=== PATIENT | female | born 1965 | race Caucasian/White ===

== ENCOUNTER 2021-09-18 16:01 | Inpatient (IN) ==
[2021-09-18] MEDS ORDERED: Cefepime HCl 2,000 MG in 0.9 % Sodium Chloride 10 ML IVP ONE (18:40)
[2021-09-18] MEDS ORDERED: 0.9 % Sodium Chloride 1,000 ML IVC ONE (18:40)
[2021-09-18 18:57] LABS: Basophils % 0.2 %; Eosinophils # 0.1 K/mcL (0.0-0.6); Eosinophils % 0.5 %; Hematocrit 30.4 % (35.3-44.9); Hemoglobin 9.9 g/dL (11.5-15.4); Immature Granulocytes % 0.7 % (0-4); Lymphocytes % 6.7 %; Mean Corpuscular HGB Conc 32.6 g/dL (31.6-35.5); Mean Corpuscular Hemoglobin 30.3 pg (28.0-33.3); Mean Platelet Volume 11.2 fL (9.4-12.4); Monocytes # 0.9 K/mcL (0.0-1.3); Monocytes % 5.9 %; Neutrophils # 12.8 K/mcL (1.6-8.9); Platelet Count 229 K/mcL (140-400); Red Blood Count 3.27 M/mcL (3.82-4.97); Red Cell Distribution Width 12.3 % (11.5-14.5); White Blood Count 14.8 K/mcL (4.3-11.1)
[2021-09-18 19:10] LABS: INR 1.2
[2021-09-18 19:16] LABS: Alanine Aminotransferase 10 Units/L (7-52); Albumin 3.4 g/dL (3.5-5.7); Alkaline Phosphatase 104 Units/L (34-104); Aspartate Amino Transferase 9 Units/L (13-39); BUN/Creatinine Ratio 13 (6-26); Bilirubin,Direct 0.1 mg/dL (0.0-0.2); Bilirubin,Indirect 0.3 mg/dL (0.0-1.0); Bilirubin,Total 0.4 mg/dL (0.3-1.0); Blood Urea Nitrogen 14 mg/dL (6-20); C-Reactive Protein 220 mg/L (Less than 10); Calcium 8.8 mg/dL (8.6-10.3); Carbon Dioxide 22 mEq/L (23-29); Chloride 103 mEq/L (98-107); Globulin 3.3 g/dL (2.4-3.5); Glucose 126 mg/dL (70-105); Lipase 3 Units/L (11-82); Magnesium 1.3 mg/dL (1.6-2.6); Osmolality,Calculated 278 (280-300); Phosphorous 2.5 mg/dL (2.7-4.5); Potassium 4.2 mEq/L (3.5-5.1); Sodium 133 mEq/L (136-145); Total Protein 6.7 g/dL (6.4-8.9); Troponin I 0.03 ng/mL (< 0.04); eGFR For African Americans > 60 (> 60); eGFR For Non-African Americans 55 (> 60)
[2021-09-18] MEDS ORDERED: *HR* FentaNYL (PF) 100 MCG/2 ML VIAL IVP ONE (19:36)
[2021-09-18] MEDS ORDERED: Ibuprofen 800 MG TABLET PO ONE (20:42)
[2021-09-18] MEDS ORDERED: *HR* HYDROcodone/Acet 5/325 mg TABLET PO PRN (21:06)
[2021-09-18] MEDS ORDERED: Acetaminophen 325 MG TABLET PO PRN (21:06)
[2021-09-18] MEDS ORDERED: Melatonin 3 MG TABLET PO PRN (21:06)
[2021-09-18] MEDS ORDERED: Ondansetron 4 MG/2 ML VIAL IVP PRN (21:06)
[2021-09-18] MEDS ORDERED: *HR* OxyCODONE Immed Rel 5 MG TABLET PO PRN (21:06)
[2021-09-18] MEDS ORDERED: Naloxone 0.4 MG/ML INJ IVP PRN (21:06)
[2021-09-18] MEDS ORDERED: *HR* Dextrose 50 % in Water (Syg) 50 ML SYRINGE IVP PRN (21:09)
[2021-09-18] MEDS ORDERED: Dextrose Gel 15 GM/37.5 ML TUBE PO PRN ×2 (21:09)
[2021-09-18] MEDS ORDERED: D5% in Water 1,000 ML IVC PRN (21:09)
[2021-09-18] MEDS ORDERED: 0.9 % Sodium Chloride 1,000 ML IVC SCH (21:15)
[2021-09-18 21:47] LABS: Amphetamine Screen,Urine Negative ng/mL (Cutoff=1000); Barbiturate Screen,Urine Negative ng/mL (Cutoff=200); Benzodiazepines Screen,Urine Negative ng/mL (Cutoff=200); Cannabinoid Screen,Urine Negative ng/mL (Cutoff = 50); Cocaine Screen,Urine Negative ng/mL (Cutoff= 300); Opiate Screen,Urine Negative ng/mL (Cutoff=300); Phencyclidine Screen,Urine Negative ng/mL (Cutoff=25)
[2021-09-18] MEDS: Budesonide/Formoterol 160/4.5 1 PUFF INH IH SCH (22:49)
[2021-09-18 23:42] LABS: Procalcitonin 0.12 ng/mL (0.00-0.15)
[2021-09-18] MEDS: MetroNIDAZOLE 500 MG/100 ML 500 MG/100 ML BAG IVPB SCH (23:47)
[2021-09-18] MEDS: Cefepime HCl 2,000 MG in 0.9 % Sodium Chloride 10 ML IVP SCH (23:48)
[2021-09-19 05:17] LABS: Basophils % 0.2 %; Eosinophils % 0.3 %; Hematocrit 28.4 % (35.3-44.9); Hemoglobin 9.1 g/dL (11.5-15.4); Immature Granulocytes % 0.9 % (0-4); Lymphocytes # 1.4 K/mcL (0.6-4.6); Lymphocytes % 10.2 %; Mean Corpuscular Hemoglobin 30.2 pg (28.0-33.3); Mean Corpuscular Volume 94.4 fL (83.0-100.0); Mean Platelet Volume 11.2 fL (9.4-12.4); Monocytes # 1.1 K/mcL (0.0-1.3); Monocytes % 7.6 %; Neutrophils # 11.1 K/mcL (1.6-8.9); Platelet Count 191 K/mcL (140-400); Red Blood Count 3.01 M/mcL (3.82-4.97); Red Cell Distribution Width 12.5 % (11.5-14.5); Segmented Neutrophils % 80.8 %; White Blood Count 13.8 K/mcL (4.3-11.1)
[2021-09-19 05:21] LABS: INR 1.1; Prothrombin Time 12.7 Seconds (9.4-12.1)
[2021-09-19 05:23] LABS: Activated Partial Thrombo Time 30.2 Seconds (26.0-36.0)
[2021-09-19 05:31] LABS: Alanine Aminotransferase 8 Units/L (7-52); Alkaline Phosphatase 88 Units/L (34-104); Aspartate Amino Transferase 7 Units/L (13-39); BUN/Creatinine Ratio 14 (6-26); Bilirubin,Total 0.4 mg/dL (0.3-1.0); Blood Urea Nitrogen 14 mg/dL (6-20); Calcium 8.5 mg/dL (8.6-10.3); Carbon Dioxide 19 mEq/L (23-29); Chloride 111 mEq/L (98-107); Globulin 2.9 g/dL (2.4-3.5); Glucose 163 mg/dL (70-105); Magnesium 2.1 mg/dL (1.6-2.6); Osmolality,Calculated 288 (280-300); Phosphorous 3.4 mg/dL (2.7-4.5); Potassium 4.1 mEq/L (3.5-5.1); Sodium 137 mEq/L (136-145); Total Protein 5.9 g/dL (6.4-8.9); eGFR For African Americans > 60 (> 60); eGFR For Non-African Americans 56 (> 60)
[2021-09-19 05:32] LABS: % Iron Saturation 4 % (15-50); Iron 10 mcg/dL (50-170); Transferrin 202 mg/dL (203-362)
[2021-09-19 05:51] LABS: Ferritin 81 ng/mL (10-120)
[2021-09-19 06:06] LABS: Folate > 22.3 ng/mL (3.0-16.0); Vitamin B12 462 pg/mL (250-1100)
[2021-09-19] MEDS ORDERED: Ipratropium/Albuterol Neb 3 ML ONE (07:53)
[2021-09-19] MEDS: Budesonide/Formoterol 160/4.5 1 PUFF INH IH SCH ×3 (07:56→20:12)
[2021-09-19] MEDS: Insulin LISPRO 300 UNITS/3 ML VIAL SUBQ SCH ×5 (08:55→19:54)
[2021-09-19] MEDS: Cefepime HCl 2,000 MG in 0.9 % Sodium Chloride 10 ML IVP SCH (08:59)
[2021-09-19] MEDS ORDERED: Gabapentin 400 MG CAPSULE PO SCH (09:00)
[2021-09-19] MEDS ORDERED: lisinopriL 5 MG TABLET PO SCH (09:00)
[2021-09-19] MEDS ORDERED: Nicotine 21 MG PATCH.TD24 TD SCH (09:00)
[2021-09-19] MEDS ORDERED: PARoxetine 10 MG TABLET PO SCH (09:00)
[2021-09-19] MEDS ORDERED: Chlorhexidine Rinse 15 ML MOUTHWASH MM SCH (09:00)
[2021-09-19] MEDS ORDERED: Sennosides/Docusate Sodium TABLET PO SCH (09:00)
[2021-09-19] MEDS ORDERED: Folic Acid 1 MG TABLET PO SCH (09:00)
[2021-09-19] MEDS ORDERED: polyethylene glycoL 3350 17 GM POWD.PACK PO SCH (09:00)
[2021-09-19] MEDS ORDERED: Multivit/Ca/Min/Fe/FA 1 TAB TABLET PO SCH (09:00)
[2021-09-19] MEDS ORDERED: Lactobacillus 1 EACH CAP.SPRINK PO SCH (09:00)
[2021-09-19] MEDS: MetroNIDAZOLE 500 MG/100 ML 500 MG/100 ML BAG IVPB SCH ×2 (09:03→23:59)
[2021-09-19] MEDS ORDERED: Ipratropium/Albuterol Neb 3 ML IH SCH ×2 (10:00)
[2021-09-19] MEDS ORDERED: *HR* HYDROmorphone PF 0.5 MG/0.5 ML SYRINGE IVP PRN ×2 (10:18→16:52)
[2021-09-19] MEDS ORDERED: *HR* FentaNYL (PF) 100 MCG/2 ML VIAL IVP PRN ×2 (10:18→16:52)
[2021-09-19] MEDS ORDERED: Sennosides/Docusate Sodium TABLET PO PRN ×2 (10:58→16:52)
[2021-09-19 12:52] LABS: Estimated Average Glucose 148 mg/dl; Hemoglobin A1C 6.8 %
[2021-09-19] MEDS ORDERED: *HR* Midazolam HCl 2 MG/2 ML VIAL ONE (14:49)
[2021-09-19] MEDS ORDERED: *HR* FentaNYL (PF) 100 MCG/2 ML VIAL ONE (14:49)
[2021-09-19] MEDS ORDERED: Ondansetron 4 MG/2 ML VIAL ONE (14:49)
[2021-09-19] MEDS ORDERED: *HR* Propofol 200 MG/20 ML VIAL IVP ONE (14:50)
[2021-09-19] MEDS ORDERED: Lidocaine -MPF 2% 2 ML VIAL ONE (14:50)
[2021-09-19] MEDS ORDERED: Lidocaine/EPI 1:100k 1% 50 ML VIAL ONE (14:54)
[2021-09-19] MEDS ORDERED: *HR* OxyCODONE Immed Rel 5 MG TABLET PO PRN (15:00)
[2021-09-19] MEDS ORDERED: *HR* Labetalol 20 MG/4 ML SYRINGE IVP PRN ×2 (15:06→16:52)
[2021-09-19] MEDS ORDERED: Ondansetron 4 MG/2 ML VIAL IVP PRN ×3 (15:06→16:52)
[2021-09-19] MEDS ORDERED: *HR* Dextrose 50 % in Water (Syg) 50 ML SYRINGE IVP PRN (16:52)
[2021-09-19] MEDS ORDERED: 0.9 % Sodium Chloride 1,000 ML IVC SCH (16:52)
[2021-09-19] MEDS ORDERED: D5% in Water 1,000 ML IVC PRN (16:52)
[2021-09-19] MEDS ORDERED: Acetaminophen 325 MG TABLET PO PRN (16:52)
[2021-09-19] MEDS ORDERED: Dextrose Gel 15 GM/37.5 ML TUBE PO PRN ×2 (16:52)
[2021-09-19] MEDS ORDERED: Naloxone 0.4 MG/ML INJ IVP PRN (16:52)
[2021-09-19] MEDS ORDERED: Melatonin 3 MG TABLET PO PRN (16:52)
[2021-09-19] MEDS ORDERED: Insulin LISPRO 300 UNITS/3 ML VIAL SUBQ SCH (18:00)
[2021-09-19] MEDS: Gabapentin 400 MG CAPSULE PO SCH (19:52)
[2021-09-19] MEDS: Lactobacillus 1 EACH CAP.SPRINK PO SCH (19:52)
[2021-09-19] MEDS: Cefepime HCl 2,000 MG in 0.9 % Sodium Chloride Mini Bag 100 ML IVPB SCH (19:53)
[2021-09-19] MEDS: Ipratropium/Albuterol Neb 3 ML IH SCH (20:14)
[2021-09-19] MEDS ORDERED: Insulin DETEMIR 100 UNIT/ML X5UNITS SUBQ SCH (21:00)
[2021-09-19] MEDS ORDERED: Cefepime HCl 2,000 MG in 0.9 % Sodium Chloride Mini Bag 100 ML IVPB SCH (21:00)
[2021-09-19] MEDS: *HR* HYDROcodone/Acet 5/325 mg TABLET PO PRN (23:58)
[2021-09-20 05:20] LABS: BUN/Creatinine Ratio 12 (6-26); Basophils # 0.1 K/mcL (0.0-0.2); Basophils % 0.4 %; Blood Urea Nitrogen 10 mg/dL (6-20); Calcium 8.1 mg/dL (8.6-10.3); Carbon Dioxide 19 mEq/L (23-29); Chloride 113 mEq/L (98-107); Eosinophils # 0.1 K/mcL (0.0-0.6); Eosinophils % 0.7 %; Glucose 116 mg/dL (70-105); Hematocrit 26.1 % (35.3-44.9); Hemoglobin 8.3 g/dL (11.5-15.4); Immature Granulocytes % 0.5 % (0-4); Lymphocytes # 1.5 K/mcL (0.6-4.6); Lymphocytes % 13.2 %; Mean Corpuscular HGB Conc 31.8 g/dL (31.6-35.5); Mean Corpuscular Hemoglobin 30.2 pg (28.0-33.3); Mean Corpuscular Volume 94.9 fL (83.0-100.0); Monocytes # 1.1 K/mcL (0.0-1.3); Monocytes % 9.1 %; Neutrophils # 8.8 K/mcL (1.6-8.9); Osmolality,Calculated 286 (280-300); Platelet Count 192 K/mcL (140-400); Potassium 3.8 mEq/L (3.5-5.1); Red Blood Count 2.75 M/mcL (3.82-4.97); Red Cell Distribution Width 12.7 % (11.5-14.5); Segmented Neutrophils % 76.1 %; Sodium 138 mEq/L (136-145); White Blood Count 11.6 K/mcL (4.3-11.1); eGFR For African Americans > 60 (> 60); eGFR For Non-African Americans > 60 (> 60)
[2021-09-20] MEDS: *HR* HYDROcodone/Acet 5/325 mg TABLET PO PRN (06:11)
[2021-09-20] MEDS: Insulin LISPRO 300 UNITS/3 ML VIAL SUBQ SCH ×4 (08:00→20:40)
[2021-09-20] MEDS: MetroNIDAZOLE 500 MG/100 ML 500 MG/100 ML BAG IVPB SCH (08:07)
[2021-09-20] MEDS: Ipratropium/Albuterol Neb 3 ML IH SCH (08:10)
[2021-09-20] MEDS: Budesonide/Formoterol 160/4.5 1 PUFF INH IH SCH ×2 (08:11→21:01)
[2021-09-20] MEDS: Cefepime HCl 2,000 MG in 0.9 % Sodium Chloride Mini Bag 100 ML IVPB SCH ×2 (08:17→20:39)
[2021-09-20] MEDS: Nicotine 21 MG PATCH.TD24 TD SCH (08:20)
[2021-09-20] MEDS: Gabapentin 400 MG CAPSULE PO SCH ×3 (08:20→20:37)
[2021-09-20] MEDS: Lactobacillus 1 EACH CAP.SPRINK PO SCH ×2 (08:20→20:37)
[2021-09-20] MEDS: Folic Acid 1 MG TABLET PO SCH (08:20)
[2021-09-20] MEDS: Multivit/Ca/Min/Fe/FA 1 TAB TABLET PO SCH (08:21)
[2021-09-20] MEDS: PARoxetine 10 MG TABLET PO SCH (08:21)
[2021-09-20] MEDS: lisinopriL 5 MG TABLET PO SCH (08:31)
[2021-09-20] MEDS: *HR* OxyCODONE Immed Rel 5 MG TABLET PO PRN ×2 (12:52→20:37)
[2021-09-20] MEDS: metroNIDAZOLE 500 MG TABLET PO SCH ×2 (15:26→20:37)
[2021-09-20] MEDS: Vancomycin 2,000 MG/520 ML IV.SOLN IVPB SCH (19:26)
[2021-09-20] MEDS: Cefepime HCl 2,000 MG in 0.9 % Sodium Chloride 10 ML IVPB SCH (20:57)
[2021-09-21 01:12] LABS: Basophils # 0.1 K/mcL (0.0-0.2); Basophils % 0.5 %; Eosinophils # 0.2 K/mcL (0.0-0.6); Eosinophils % 1.7 %; Hematocrit 27.9 % (35.3-44.9); Hemoglobin 8.8 g/dL (11.5-15.4); Immature Granulocytes % 0.4 % (0-4); Lymphocytes # 1.9 K/mcL (0.6-4.6); Lymphocytes % 18.2 %; Mean Corpuscular HGB Conc 31.5 g/dL (31.6-35.5); Mean Corpuscular Hemoglobin 29.9 pg (28.0-33.3); Mean Corpuscular Volume 94.9 fL (83.0-100.0); Mean Platelet Volume 10.6 fL (9.4-12.4); Monocytes # 0.9 K/mcL (0.0-1.3); Monocytes % 8.5 %; Neutrophils # 7.5 K/mcL (1.6-8.9); Platelet Count 195 K/mcL (140-400); Red Blood Count 2.94 M/mcL (3.82-4.97); Red Cell Distribution Width 12.7 % (11.5-14.5); Segmented Neutrophils % 70.7 %; White Blood Count 10.6 K/mcL (4.3-11.1)
[2021-09-21 01:34] LABS: BUN/Creatinine Ratio 11 (6-26); Blood Urea Nitrogen 12 mg/dL (6-20); Calcium 8.5 mg/dL (8.6-10.3); Carbon Dioxide 22 mEq/L (23-29); Chloride 111 mEq/L (98-107); Glucose 119 mg/dL (70-105); Osmolality,Calculated 289 (280-300); Potassium 3.8 mEq/L (3.5-5.1); Sodium 139 mEq/L (136-145); eGFR For African Americans > 60 (> 60); eGFR For Non-African Americans 54 (> 60)
[2021-09-21] MEDS: Insulin LISPRO 300 UNITS/3 ML VIAL SUBQ SCH ×4 (07:50→20:04)
[2021-09-21] MEDS: Budesonide/Formoterol 160/4.5 1 PUFF INH IH SCH ×2 (08:22→20:55)
[2021-09-21] MEDS: Lactobacillus 1 EACH CAP.SPRINK PO SCH ×2 (08:41→20:04)
[2021-09-21] MEDS: Multivit/Ca/Min/Fe/FA 1 TAB TABLET PO SCH (08:41)
[2021-09-21] MEDS: *HR* HYDROcodone/Acet 5/325 mg TABLET PO PRN ×2 (08:41→20:03)
[2021-09-21] MEDS: Gabapentin 400 MG CAPSULE PO SCH ×3 (08:41→20:03)
[2021-09-21] MEDS: Folic Acid 1 MG TABLET PO SCH (08:42)
[2021-09-21] MEDS: metroNIDAZOLE 500 MG TABLET PO SCH ×3 (08:42→20:08)
[2021-09-21] MEDS: PARoxetine 10 MG TABLET PO SCH (08:42)
[2021-09-21] MEDS: lisinopriL 5 MG TABLET PO SCH (08:42)
[2021-09-21] MEDS: Nicotine 21 MG PATCH.TD24 TD SCH (08:42)
[2021-09-21] MEDS: Cefepime HCl 2,000 MG in 0.9 % Sodium Chloride 10 ML IVPB SCH ×2 (09:45→20:09)
[2021-09-21] MEDS ORDERED: Cefepime HCl 2,000 MG in 0.9 % Sodium Chloride Mini Bag 100 ML IVPB SCH (13:05)
[2021-09-21] MEDS: Vancomycin 2,000 MG/520 ML IV.SOLN IVPB SCH (17:45)
[2021-09-22 03:12] LABS: Basophils % 0.5 %; Eosinophils # 0.2 K/mcL (0.0-0.6); Eosinophils % 2.1 %; Hematocrit 26.7 % (35.3-44.9); Hemoglobin 8.6 g/dL (11.5-15.4); Immature Granulocytes % 0.2 % (0-4); Lymphocytes # 1.8 K/mcL (0.6-4.6); Mean Corpuscular HGB Conc 32.2 g/dL (31.6-35.5); Mean Corpuscular Hemoglobin 30.3 pg (28.0-33.3); Mean Platelet Volume 10.8 fL (9.4-12.4); Monocytes # 0.7 K/mcL (0.0-1.3); Neutrophils # 5.6 K/mcL (1.6-8.9); Platelet Count 197 K/mcL (140-400); Red Blood Count 2.84 M/mcL (3.82-4.97); Red Cell Distribution Width 12.8 % (11.5-14.5); Segmented Neutrophils % 67.2 %; White Blood Count 8.3 K/mcL (4.3-11.1)
[2021-09-22 03:33] LABS: Calcium 8.1 mg/dL (8.6-10.3); Potassium 3.9 mEq/L (3.5-5.1)
[2021-09-22] MEDS: *HR* HYDROcodone/Acet 5/325 mg TABLET PO PRN (05:28)
[2021-09-22] MEDS ORDERED: *HR* HYDROmorphone PF 0.5 MG/0.5 ML SYRINGE IVP PRN (07:26)
[2021-09-22] MEDS ORDERED: Ondansetron 4 MG/2 ML VIAL IVP PRN (07:26)
[2021-09-22] MEDS ORDERED: *HR* FentaNYL (PF) 100 MCG/2 ML VIAL IVP PRN (07:26)
[2021-09-22] MEDS ORDERED: *HR* OxyCODONE Immed Rel 5 MG TABLET PO PRN (07:26)
[2021-09-22] MEDS: Insulin LISPRO 300 UNITS/3 ML VIAL SUBQ SCH ×4 (08:00→20:01)
[2021-09-22] MEDS: Folic Acid 1 MG TABLET PO SCH (08:11)
[2021-09-22] MEDS: PARoxetine 10 MG TABLET PO SCH (08:11)
[2021-09-22] MEDS: Multivit/Ca/Min/Fe/FA 1 TAB TABLET PO SCH (08:11)
[2021-09-22] MEDS: Cefepime HCl 2,000 MG in 0.9 % Sodium Chloride 10 ML IVPB SCH ×2 (08:12→19:59)
[2021-09-22] MEDS: metroNIDAZOLE 500 MG TABLET PO SCH ×3 (08:12→20:00)
[2021-09-22] MEDS: Nicotine 21 MG PATCH.TD24 TD SCH (08:12)
[2021-09-22] MEDS: Lactobacillus 1 EACH CAP.SPRINK PO SCH ×2 (08:13→20:00)
[2021-09-22] MEDS ORDERED: 0.9 % Sodium Chloride 1,000 ML IVC SCH (08:15)
[2021-09-22] MEDS ORDERED: 0.9 % Sodium Chloride 1,000 ML ONE (08:16)
[2021-09-22] MEDS ORDERED: Albuterol 2.5 MG/3 ML NEBULIZER IH ONE (08:45)
[2021-09-22] MEDS: Budesonide/Formoterol 160/4.5 1 PUFF INH IH SCH ×2 (09:28→20:18)
[2021-09-22] MEDS ORDERED: *HR* Propofol 200 MG/20 ML VIAL IVP ONE (10:09)
[2021-09-22] MEDS ORDERED: *HR* Midazolam HCl 2 MG/2 ML VIAL ONE (10:09)
[2021-09-22] MEDS ORDERED: *HR* FentaNYL (PF) 100 MCG/2 ML VIAL ONE (10:09)
[2021-09-22] MEDS ORDERED: Lidocaine -MPF 2% 5 ML VIAL ONE (10:11)
[2021-09-22] MEDS ORDERED: Ondansetron 4 MG/2 ML VIAL ONE (10:11)
[2021-09-22] MEDS ORDERED: Vancomycin 1,750 MG/517.5 ML IV.SOLN IVPB SCH (19:00)
[2021-09-23 05:13] LABS: Basophils % 0.4 %; Eosinophils # 0.1 K/mcL (0.0-0.6); Eosinophils % 0.5 %; Hematocrit 26.8 % (35.3-44.9); Hemoglobin 8.8 g/dL (11.5-15.4); Immature Granulocytes % 0.4 % (0-4); Lymphocytes # 1.8 K/mcL (0.6-4.6); Lymphocytes % 15.9 %; Mean Corpuscular HGB Conc 32.8 g/dL (31.6-35.5); Mean Corpuscular Hemoglobin 30.2 pg (28.0-33.3); Mean Corpuscular Volume 92.1 fL (83.0-100.0); Monocytes # 0.7 K/mcL (0.0-1.3); Monocytes % 5.9 %; Neutrophils # 8.7 K/mcL (1.6-8.9); Platelet Count 221 K/mcL (140-400); Red Blood Count 2.91 M/mcL (3.82-4.97); Red Cell Distribution Width 12.6 % (11.5-14.5); Segmented Neutrophils % 76.9 %; White Blood Count 11.2 K/mcL (4.3-11.1)
[2021-09-23 05:33] LABS: Potassium 4.1 mEq/L (3.5-5.1)
[2021-09-23] MEDS: Budesonide/Formoterol 160/4.5 1 PUFF INH IH SCH ×2 (07:31→22:12)
[2021-09-23] MEDS: metroNIDAZOLE 500 MG TABLET PO SCH ×3 (08:06→20:00)
[2021-09-23] MEDS: PARoxetine 10 MG TABLET PO SCH (08:06)
[2021-09-23] MEDS: Folic Acid 1 MG TABLET PO SCH (08:06)
[2021-09-23] MEDS: Nicotine 21 MG PATCH.TD24 TD SCH (08:06)
[2021-09-23] MEDS: Multivit/Ca/Min/Fe/FA 1 TAB TABLET PO SCH (08:06)
[2021-09-23] MEDS: Lactobacillus 1 EACH CAP.SPRINK PO SCH ×2 (08:06→19:48)
[2021-09-23] MEDS: Insulin LISPRO 300 UNITS/3 ML VIAL SUBQ SCH ×4 (08:08→22:21)
[2021-09-23] MEDS: Cefepime HCl 2,000 MG in 0.9 % Sodium Chloride 10 ML IVPB SCH (08:09)
[2021-09-23] MEDS: CeFAZolin 2,000 MG/120 ML BAG IVPB SCH (18:39)
[2021-09-24] MEDS: CeFAZolin 2,000 MG/120 ML BAG IVPB SCH ×4 (05:01→23:04)
[2021-09-24] MEDS: Insulin LISPRO 300 UNITS/3 ML VIAL SUBQ SCH ×4 (09:39→19:30)
[2021-09-24] MEDS: metroNIDAZOLE 500 MG TABLET PO SCH ×3 (09:47→19:30)
[2021-09-24] MEDS: Folic Acid 1 MG TABLET PO SCH (09:47)
[2021-09-24] MEDS: Lactobacillus 1 EACH CAP.SPRINK PO SCH ×2 (09:47→19:30)
[2021-09-24] MEDS: Nicotine 21 MG PATCH.TD24 TD SCH (09:47)
[2021-09-24] MEDS: PARoxetine 10 MG TABLET PO SCH (09:47)
[2021-09-24] MEDS: Multivit/Ca/Min/Fe/FA 1 TAB TABLET PO SCH (09:48)
[2021-09-24] MEDS: Budesonide/Formoterol 160/4.5 1 PUFF INH IH SCH ×2 (10:34→21:34)
[2021-09-24 14:19] LABS: Basophils # 0.1 K/mcL (0.0-0.2); Basophils % 0.4 %; Eosinophils # 0.1 K/mcL (0.0-0.6); Eosinophils % 0.5 %; Hematocrit 32.6 % (35.3-44.9); Hemoglobin 10.8 g/dL (11.5-15.4); Immature Granulocytes % 0.5 % (0-4); Lymphocytes # 1.8 K/mcL (0.6-4.6); Lymphocytes % 14.7 %; Mean Corpuscular HGB Conc 33.1 g/dL (31.6-35.5); Mean Corpuscular Volume 90.6 fL (83.0-100.0); Mean Platelet Volume 10.7 fL (9.4-12.4); Monocytes # 0.4 K/mcL (0.0-1.3); Monocytes % 3.7 %; Neutrophils # 9.6 K/mcL (1.6-8.9); Platelet Count 274 K/mcL (140-400); Red Cell Distribution Width 12.6 % (11.5-14.5); Segmented Neutrophils % 80.2 %
[2021-09-24 14:33] LABS: BUN/Creatinine Ratio 17 (6-26); Blood Urea Nitrogen 16 mg/dL (6-20); Calcium 8.2 mg/dL (8.6-10.3); Carbon Dioxide 24 mEq/L (23-29); Chloride 103 mEq/L (98-107); Glucose 271 mg/dL (70-105); Osmolality,Calculated 289 (280-300); Potassium 4.1 mEq/L (3.5-5.1); Sodium 134 mEq/L (136-145); eGFR For African Americans > 60 (> 60); eGFR For Non-African Americans > 60 (> 60)
[2021-09-25] MEDS: Insulin LISPRO 300 UNITS/3 ML VIAL SUBQ SCH ×4 (07:30→19:57)
[2021-09-25] MEDS: Lactobacillus 1 EACH CAP.SPRINK PO SCH ×2 (07:39→19:57)
[2021-09-25] MEDS: Multivit/Ca/Min/Fe/FA 1 TAB TABLET PO SCH (07:39)
[2021-09-25] MEDS: Folic Acid 1 MG TABLET PO SCH (07:39)
[2021-09-25] MEDS: metroNIDAZOLE 500 MG TABLET PO SCH ×3 (07:39→19:57)
[2021-09-25] MEDS: PARoxetine 10 MG TABLET PO SCH (07:39)
[2021-09-25] MEDS: Nicotine 21 MG PATCH.TD24 TD SCH (07:40)
[2021-09-25] MEDS: CeFAZolin 2,000 MG/120 ML BAG IVPB SCH ×3 (07:40→23:35)
[2021-09-25 07:54] LABS: Basophils # 0.1 K/mcL (0.0-0.2); Basophils % 0.5 %; Eosinophils # 0.1 K/mcL (0.0-0.6); Eosinophils % 0.7 %; Hematocrit 29.2 % (35.3-44.9); Hemoglobin 9.7 g/dL (11.5-15.4); Immature Granulocytes % 0.5 % (0-4); Lymphocytes # 1.9 K/mcL (0.6-4.6); Lymphocytes % 17.1 %; Mean Corpuscular HGB Conc 33.2 g/dL (31.6-35.5); Mean Corpuscular Hemoglobin 29.4 pg (28.0-33.3); Mean Corpuscular Volume 88.5 fL (83.0-100.0); Mean Platelet Volume 10.5 fL (9.4-12.4); Monocytes # 0.5 K/mcL (0.0-1.3); Monocytes % 4.9 %; Neutrophils # 8.5 K/mcL (1.6-8.9); Platelet Count 274 K/mcL (140-400); Red Cell Distribution Width 12.5 % (11.5-14.5); Segmented Neutrophils % 76.3 %; White Blood Count 11.1 K/mcL (4.3-11.1)
[2021-09-25 08:13] LABS: Calcium 8.5 mg/dL (8.6-10.3); Potassium 3.8 mEq/L (3.5-5.1)
[2021-09-25] MEDS: Budesonide/Formoterol 160/4.5 1 PUFF INH IH SCH ×2 (10:01→22:00)
[2021-09-25] MEDS ORDERED: Gabapentin 400 MG CAPSULE PO SCH (21:15)
[2021-09-26 05:44] VITALS: BP 130/56; PULSE 78; TEMP 98.2; O2SAT 97
[2021-09-26 05:50] LABS: Basophils # 0.1 K/mcL (0.0-0.2); Basophils % 0.4 %; Eosinophils # 0.1 K/mcL (0.0-0.6); Hematocrit 30.9 % (35.3-44.9); Hemoglobin 10.3 g/dL (11.5-15.4); Immature Granulocytes % 0.5 % (0-4); Lymphocytes # 2.5 K/mcL (0.6-4.6); Lymphocytes % 19.4 %; Mean Corpuscular HGB Conc 33.3 g/dL (31.6-35.5); Mean Corpuscular Volume 90.1 fL (83.0-100.0); Mean Platelet Volume 10.8 fL (9.4-12.4); Monocytes # 0.7 K/mcL (0.0-1.3); Monocytes % 5.1 %; Neutrophils # 9.4 K/mcL (1.6-8.9); Platelet Count 306 K/mcL (140-400); Red Blood Count 3.43 M/mcL (3.82-4.97); Red Cell Distribution Width 12.6 % (11.5-14.5); Segmented Neutrophils % 73.6 %; White Blood Count 12.8 K/mcL (4.3-11.1)
[2021-09-26 06:07] LABS: Calcium 8.7 mg/dL (8.6-10.3); Magnesium 1.6 mg/dL (1.6-2.6); Potassium 4.1 mEq/L (3.5-5.1)
[2021-09-26] MEDS: Folic Acid 1 MG TABLET PO SCH (07:37)
[2021-09-26] MEDS: Nicotine 21 MG PATCH.TD24 TD SCH (07:37)
[2021-09-26] MEDS: metroNIDAZOLE 500 MG TABLET PO SCH (07:37)
[2021-09-26] MEDS: PARoxetine 10 MG TABLET PO SCH (07:37)
[2021-09-26] MEDS: Lactobacillus 1 EACH CAP.SPRINK PO SCH (07:37)
[2021-09-26] MEDS: Multivit/Ca/Min/Fe/FA 1 TAB TABLET PO SCH (07:37)
[2021-09-26] MEDS: CeFAZolin 2,000 MG/120 ML BAG IVPB SCH (07:38)
[2021-09-26] MEDS: Insulin LISPRO 300 UNITS/3 ML VIAL SUBQ SCH (09:52)
[2021-09-26] MEDS: Budesonide/Formoterol 160/4.5 1 PUFF INH IH SCH (10:31)
== END 2021-09-26 11:05 | disposition home health service (06) | DRG 710 ==
LOC: EMEROOARM 16:01 → SUATTDRO 21:48 → 4WAOSI 21:48
PROVIDERS: ADMIT Internal Medicine; ATTEND Pharmacist